=== PATIENT | female | born 1975 | race Caucasian/White ===

== ENCOUNTER 2016-11-07 17:41 | Emergency (ER) | payer MEDICAID ==
--- NOTE | 2016-11-07 18:16 | ER Document Report ---
ED Medical Screen (RME) - General Stated Complaint: FALL/RIGHT KNEE PAIN Notes: Patient is a 41-year-old female fell Thunes night. Complaining of right foot , right knee and right hand pain. Patient has not been able to bear weight. I have greeted and performed a rapid initial assessment of this patient. A comprehensive ED assessment and evaluation of the patient, analysis of test results and completion of the medical decision making process will be conducted by additional ED providers. TRAVEL OUTSIDE OF THE [place] IN LAST 30 DAYS: No - Related Data Allergies/Adverse Reactions: acetaminophen [From Tylenol] Allergy (Verified 11/07/16 18:13) Hives morphine [Morphine] Allergy (Verified 11/07/16 18:13) Hives Past Medical History Pulmonary Medical History: Reports: Hx Asthma - smokers asthma Denies: Hx Tuberculosis Psychiatric Medical History: Reports: Hx Anxiety Past Surgical History: Reports: Hx Section - x2, Hx Gynecologic Surgery - Laparoscopic surgery for endometriosis adhesions; uterine ablation, Hx Hysterectomy - Uterine ablation, Hx Oral Surgery, Hx Tubal Ligation - Immunizations Immunizations up to date: Yes Hx Diphtheria, Pertussis, Tetanus Vaccination: Yes Physical Exam - Vital signs Vitals: Temp Pulse Resp BP Pulse Ox 98.2 F 85 18 122/99 H 96 11/07/16 18:08 11/07/16 18:08 11/07/16 18:08 11/07/16 18:08 11/07/16 18:08 Course - Vital Signs Vital signs: Temp Pulse Resp BP Pulse Ox 98.2 F 85 18 122/99 H 96 11/07/16 18:08 11/07/16 18:08 11/07/16 18:08 11/07/16 18:08 11/07/16 18:08
--- NOTE | 2016-11-07 20:51 | ER Document Report ---
ED Extremity Problem, Lower - General Mode of Arrival: Wheelchair Information source: Patient TRAVEL OUTSIDE OF THE [place] IN LAST 30 DAYS: No - HPI Patient complains to provider of: Injury, Pain, Swelling Location: Knee - right Occurred: Other - see HPI Where: Home, Outdoors Context: Fell Associated symptoms: Painful ambulation <LILLY REID - Last Filed: 11/07/16 21:33> <AP FIGUEROA - Last Filed: 11/07/16 22:08> - General Chief Complaint: Knee Pain Stated Complaint: FALL/RIGHT KNEE PAIN Notes: Patient is a 41-year-old female presenting with department with complaints of right knee pain. Patient states that on Thursday she fell in her driveway on her right knee. Patient states she cleaned her knee with iodine peroxide and has been dressing it appropriately. Patient complains of some swelling and painful ambulation. Patient states the tip of her toes have a numbing and tingling sensation periodically. Patient states she can move her leg and ankle but is not able to completely straighten her leg due to the pain. Patient's PCP is Dr. Reynolds. Patient is allergic to acetaminophen and morphine. (LILLY REID) - Related Data Allergies/Adverse Reactions: acetaminophen [From Tylenol] Allergy (Verified 11/07/16 18:13) Hives morphine [Morphine] Allergy (Verified 11/07/16 18:13) Hives Past Medical History - General Information source: Patient - Social History Smoking Status: Never Smoker Cigarette use (# per day): No Chew tobacco use (# tins/day): No Frequency of alcohol use: None Drug Abuse: None Family History: None Patient has suicidal ideation: No Patient has homicidal ideation: No Pulmonary Medical History: Reports: Hx Asthma - smokers asthma Psychiatric Medical History: Reports: Hx Anxiety Past Surgical History: Reports: Hx Section - x2, Hx Gynecologic Surgery - Laparoscopic surgery for endometriosis adhesions; uterine ablation, Hx Hysterectomy, Hx Oral Surgery, Hx Tubal Ligation - Immunizations Immunizations up to date: Yes Hx Diphtheria, Pertussis, Tetanus Vaccination: Yes <LILLY REID - Last Filed: 11/07/16 21:33> Review of Systems - Review of Systems Constitutional: No symptoms reported EENT: No symptoms reported Cardiovascular: No symptoms reported Respiratory: No symptoms reported Gastrointestinal: No symptoms reported Genitourinary: No symptoms reported Female Genitourinary: No symptoms reported Musculoskeletal: See HPI Skin: See HPI Hematologic/Lymphatic: No symptoms reported Neurological/Psychological: No symptoms reported -: Yes All other systems reviewed and negative <FRANKLINLILLY - Last Filed: 11/07/16 21:33> Physical Exam - Vital signs Interpretation: Normal - General General appearance: Appears well, Alert In distress: Mild - HEENT Head: Normocephalic, Atraumatic Eyes: Normal Pupils: PERRL Mucous membranes: Moist - Respiratory Respiratory status: No respiratory distress Chest status: Nontender Breath sounds: Normal Chest palpation: Normal - Cardiovascular Rhythm: Regular Heart sounds: Normal auscultation Murmur: No - Abdominal Inspection: Normal Distension: No distension Bowel sounds: Normal Tenderness: Nontender Organomegaly: No organomegaly - Back Back: Normal, Nontender - Extremities General upper extremity: Normal inspection, Normal ROM, Normal strength General lower extremity: Other - Right ankle, toes and hip is intact, good sensation and pulses Knee: Tender - Right knee, Other - Right knee effusion, anterior and posterior drawer test is positive, abrasion to right knee - Neurological Neuro grossly intact: Yes Cognition: Normal Orientation: AAOx4 [place] Coma Scale Eye Opening: Spontaneous [place] Coma Scale Verbal: Oriented [place] Coma Scale Motor: Obeys Commands Lei Coma Scale Total: 15 Speech: Normal Sensory: Normal - Psychological Associated symptoms: Normal affect, Normal mood - Skin Skin Temperature: Warm Skin Moisture: Dry Skin irregularity: other - Abrasion to right knee and right palm <DUSTINFELTONLILLY - Last Filed: 11/07/16 21:33> Course <FRANKLINLILLY - Last Filed: 11/07/16 21:33> - Diagnostic Test Radiology reviewed: Reports reviewed <AP FIGUEROA - Last Filed: 11/07/16 22:08> - Re-evaluation Re-evalutation: 11/07/16 Patient with no evidence for fracture and x-ray. Patient has a knee effusion and likely internal ligament injury. Patient does not have any evidence for cellulitis she's been cleaning her abrasions and taking care of him. Patient will be given Damon wrap knee immobilizer crutches and is to follow-up with her primary doctor and likely orthopedics. No other injuries. Understands and agrees with plan. Tetanus is up-to-date. Stable for discharge home. (AP FIGUEROA) - Vital Signs Vital signs: Temp Pulse Resp BP Pulse Ox 98.3 F 77 18 115/77 99 11/07/16 21:40 11/07/16 21:40 11/07/16 21:40 11/07/16 21:40 11/07/16 21:40 (LILLY REID) (AP FIGUEROA) Discharge <LILLY REID - Last Filed: 11/07/16 21:33> <AP FIGUEROA - Last Filed: 11/07/16 22:08> - Discharge Clinical Impression: Right knee sprain Qualifiers: Encounter type: initial encounter Involved ligament of knee: unspecified ligament Qualified Code(s): S83.91XA - Sprain of unspecified site of right knee , initial encounter Abrasion of knee, right Qualifiers: Encounter type: initial encounter Qualified Code(s): S80.211A - Abrasion, right knee, initial encounter Abrasion of palm of right hand Qualifiers: Encounter type: initial encounter Qualified Code(s): S60.511A - Abrasion of right hand, initial encounter Condition: Stable Disposition: HOME, SELF-CARE Instructions: Suspected Internal Knee Injury ([facility]), Knee Immobilizing Splint ( [facility]), Sprained Knee ([facility]), Oral Narcotic Medication ([facility]), Use of Crutches ([facility]) , Ice & Elevation ([facility]) Prescriptions: Ibuprofen/Oxycodone HCl [Oxycodone-Ibuprofen 5-400 Tab] 1 each PO BIDP PRN #20 tablet PRN Reason: Referrals: KALIA REYNOLDS MD [Primary Care Provider] - Follow up as needed Scribe Attestation: 11/07/16 22:08 I personally performed the services described in the documentation, reviewed and edited the documentation which was dictated to the scribe in my presence, and it accurately records my words and actions. (AP FIGUEROA) Scribe Documentation - Scribe Written by Scribe:: Lilly Reid 11/07/16 21:33 acting as scribe for :: Alysia <EDGREN,LILLY - Last Filed: 11/07/16 21:33>
[2016-11-07 22:04] VITALS: BP 115/77
== END 2016-11-07 21:40 | disposition home or self-care (01) ==
LOC: ER 17:41
DX: S83.91XA Sprain of unspecified site of right knee, initial encounter (principal); S60.511A Abrasion of right hand, initial encounter; W17.89XA Other fall from one level to another, initial encounter; Y92.008 Other place in unspecified non-institutional (private) residence as the place of occurrence of the external cause; M25.561 Pain in right knee; M25.461 Effusion, right knee; R20.0 Anesthesia of skin; R20.2 Paresthesia of skin; Z88.6 Allergy status to analgesic agent; Z88.5 Allergy status to narcotic agent; J45.909 Unspecified asthma, uncomplicated
CPT/HCPCS: 99283; 73630; 73130; 73562; L1830

== ENCOUNTER 2017-02-12 06:05 | Emergency (ER) | payer MEDICAID ==
--- NOTE | 2017-02-12 07:02 | ER Document Report ---
ED GI/ - General Mode of Arrival: Ambulatory Information source: Patient TRAVEL OUTSIDE OF THE [place] IN LAST 30 DAYS: No - HPI Patient complains to provider of: Abdominal pain. No: Diarrhea, Vomiting Onset: Other - 2300 last night Location: LUQ, RUQ Associated symptoms: Other - see notes above <CASSANDRA ROWLAND - Last Filed: 02/12/17 06:35> <MACARIO HU - Last Filed: 02/12/17 07:38> - General Chief Complaint: Upper Abdominal Pain Stated Complaint: UPPER ABDOMINAL PAIN Time Seen by Provider: 02/12/17 06:24 Notes: 42 year old female with history of endometriosis and lower abdominal adhesions presents to the ED complaining of bilateral upper quadrant abdominal pain that started last night at 2300. Patient describes the pain as a 'cramping' and that it feels like an 'inner tube.' Patient last ate oysters at 1900 last night. Patient had lab work and a liver ultrasound performed yesterday by Dr. Reynolds, but the patient states she is unsure of what they were looking for. Patient additionally complains of distention, but denies nausea, vomiting, diarrhea, bloody stool, constipation, shortness of breath, or cough. Patient still has her gallbladder and denies any problem with it. Patient denies history of pancreatitis. Patient is currently on Lamictal, Abilify, Alprazolam, Buspirone, and 800 mg Ibuprofen BID. Patient's primary care provider is Dr. Reynolds. (CASSANDRA ROWLAND) - Related Data Allergies/Adverse Reactions: acetaminophen [From Tylenol] Allergy (Verified 11/07/16 18:13) Hives morphine [Morphine] Allergy (Verified 11/07/16 18:13) Hives Past Medical History - General Information source: Patient - Social History Smoking Status: Current Every Day Smoker Frequency of alcohol use: Rare Family History: None Patient has suicidal ideation: No Patient has homicidal ideation: No Pulmonary Medical History: Reports: Hx Asthma - smokers asthma Psychiatric Medical History: Reports: Hx Anxiety Past Surgical History: Reports: Hx Section - x2, Hx Gynecologic Surgery - Laparoscopic surgery for endometriosis adhesions; uterine ablation, Hx Hysterectomy, Hx Oral Surgery, Hx Tubal Ligation - Immunizations Immunizations up to date: Yes Hx Diphtheria, Pertussis, Tetanus Vaccination: Yes <CASSANDRA ROWLAND - Last Filed: 02/12/17 06:35> Review of Systems - Review of Systems Constitutional: No symptoms reported EENT: No symptoms reported Cardiovascular: No symptoms reported Respiratory: No symptoms reported. denies: Cough, Short of breath Gastrointestinal: See HPI, Abdomen distended, Abdominal pain - bilateral upper quadrant. denies: Diarrhea, Nausea, Vomiting, Constipation Genitourinary: No symptoms reported Female Genitourinary: No symptoms reported Musculoskeletal: No symptoms reported Skin: No symptoms reported Hematologic/Lymphatic: No symptoms reported Neurological/Psychological: No symptoms reported -: Yes All other systems reviewed and negative <CASSANDRA ROWLAND - Last Filed: 02/12/17 06:35> Course <CASSANDRA ROWLAND - Last Filed: 02/12/17 06:35> - Laboratory Result Diagrams: 02/12/17 06:54 02/12/17 06:54 <MACARIO HU - Last Filed: 02/12/17 07:38> - Re-evaluation Re-evalutation: 02/12/17 07:37 Patient presents to the emergency department with chief complaint of upper abdominal fullness and distention. She has a history of chronic abdominal problems with endometriosis and adhesions she is not describing pain she feels like she is bloated. started last night around 11:00 no right upper quadrant pain she has had mildly elevated liver enzymes further doing some outpatient workup for that. No fevers chills cough chest pain shortness of breath. No nausea vomiting abdominal pain diarrhea constipation urinary symptoms or blood in the stool. On examination she is well-appearing nontoxic in no acute distress with no acute abdominal tenderness guarding rebound rigidity good bowel sounds no acute abdominal findings. Laboratory evaluation no white count elevation elevated lipase mildly elevated liver enzymes acute abdominal series negative for obstruction. At this point patient will be discharged to home primary care provider in 1-2 days and discussed reasons for ED return to (MACARIO HU) - Vital Signs Vital signs: Temp Pulse Resp BP Pulse Ox 97.7 F 99 20 127/99 H 97 02/12/17 06:12 02/12/17 06:12 02/12/17 06:12 02/12/17 06:12 02/12/17 06:12 - Laboratory Laboratory results interpreted by me: 02/12/17 02/12/17 06:54 06:54 Eosinophils % 6.2 H AST 124 H ALT 165 H Discharge <CASSANDRA ROWLAND - Last Filed: 02/12/17 06:35> <MACARIO HU - Last Filed: 02/12/17 07:38> - Discharge Clinical Impression: Abdominal distension Condition: Stable Disposition: HOME, SELF-CARE Additional Instructions: Abdominal fullness distension There are many causes of abdominal pain. Pain can mean a serious problem requiring surgery (such as appendicitis). It can also be an innocent problem that goes away on its own (such as a viral infection). Often, time must pass to determine the cause of pain. The physician does not feel that hospitalization is necessary, at present. Things may change within the next 24 hours. Call the doctor or come back for re- examination if any problems occur, such as: (1) Pain that becomes more severe, steady, or becomes concentrated in one specific area. Also, pain that is more severe with movement or coughing. (2) Vomiting that persists or becomes more frequent. (3) Blood in the vomitus, urine, or bowel movements. Blood in the stool may have a tarry or black appearance. (4) Shaking chills or fever greater than 100 degrees F. (5) The abdomen becomes more distended or swollen. (6) Bowel movements cease. (7) Failure to improve as expected. Referrals: KALIA REYNOLDS MD [Primary Care Provider] - (Follow-up with your primary care physician in 1-2 days return for increasing worsening or new symptoms) Scribe Attestation: 02/12/17 07:36 I personally performed the services described in the documentation reviewed the documentation recorded by my scribe in my presence and it accurately and completely records my words and actions (MACARIO HU) Scribe Documentation - Scribe Written by Dhruv:: Dhruv Corrigan, 02/12/2017 [id number] acting as scribe for :: Raoul <CASSANDRA ROWLAND - Last Filed: 02/12/17 06:35>
[2017-02-12 07:05] LABS: ABSOLUTE BASOPHILS # (AUTO) 0.1 10^3/uL (0.0-0.2); ABSOLUTE EOSINOPHILS # (AUTO) 0.4 10^3/uL (0.0-0.6); ABSOLUTE LYMPHOCYTES (AUTO) 2.1 10^3/uL (0.5-4.7); ABSOLUTE MONOCYTES (AUTO) 0.6 10^3/uL (0.1-1.4); ABSOLUTE NEUT (AUTO) 3.6 10^3/uL (1.7-8.2); BASOPHILS % (AUTO) 0.9 % (0-2); EOSINOPHILS % (AUTO) 6.2 % (0-6); HEMATOCRIT 42.3 % (36.0-47.0); HEMOGLOBIN 14.6 g/dL (12.0-15.5); HGB HCT DIFFERENCE 1.5; LYMPHOCYTES % (AUTO) 30.7 % (13-45); MEAN CORPUSCULAR HEMOGLOBIN 32.1 pg (27.0-33.4); MEAN CORPUSCULAR HGB CONC 34.6 g/dL (32.0-36.0); MEAN CORPUSCULAR VOLUME 93 fl (80-97); MONOCYTES % (AUTO) 9.4 % (3-13); RED BLOOD COUNT 4.55 10^6/uL (3.72-5.28); RED CELL DISTRIBUTION WIDTH 13.1 % (11.5-14.0); SEGMENTED NEUTROPHILS % (AUTO) 52.8 % (42-78); WHITE BLOOD COUNT 6.8 10^3/uL (4.0-10.5)
[2017-02-12 07:17] LABS: ALANINE AMINOTRANSFERASE 165 U/L (9-52); ALBUMIN 3.7 g/dL (3.5-5.0); ALKALINE PHOSPHATASE 58 U/L (38-126); ANION GAP 11 (5-19); ASPARTATE AMINO TRANSFERASE 124 U/L (14-36); BILIRUBIN,DIRECT 0.2 mg/dL (0.0-0.4); BILIRUBIN,TOTAL 0.5 mg/dL (0.2-1.3); BLOOD UREA NITROGEN 12 mg/dL (7-20); CALCIUM 9.1 mg/dL (8.4-10.2); CARBON DIOXIDE 23 mmol/L (22-30); CHLORIDE 107 mmol/L (98-107); CREATININE RESULT 0.63 mg/dL (0.52-1.25); GLUCOSE 93 mg/dL (75-110); LIPASE 75.1 U/L (23-300); SODIUM 140.8 mmol/L (137-145); TOTAL PROTEIN 6.3 g/dL (6.3-8.2)
[2017-02-12 07:48] VITALS: BP 119/80
== END 2017-02-12 07:49 | disposition home or self-care (01) ==
LOC: ER 06:05
DX: R14.0 Abdominal distension (gaseous) (principal); R10.12 Left upper quadrant pain; R10.11 Right upper quadrant pain; R74.8 Abnormal levels of other serum enzymes; F41.9 Anxiety disorder, unspecified; J45.909 Unspecified asthma, uncomplicated; F17.200 Nicotine dependence, unspecified, uncomplicated; Z79.899 Other long term (current) drug therapy; Z79.1 Long term (current) use of non-steroidal anti-inflammatories (NSAID); Z90.710 Acquired absence of both cervix and uterus; Z87.42 Personal history of other diseases of the female genital tract; Z98.890 Other specified postprocedural states
CPT/HCPCS: 36415; 74022; 80053; 83690; 85025; 99284

== ENCOUNTER 2017-07-08 | Emergency (ER) | payer MEDICAID ==
[2017-07-08 00:35] VITALS: BP 132/90
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
== END 2017-07-08 00:41 | disposition left against medical advice (07) ==
LOC: ER
DX: S80.02XA Contusion of left knee, initial encounter (principal); S80.212A Abrasion, left knee, initial encounter; F10.10 Alcohol abuse, uncomplicated; M25.562 Pain in left knee; F17.200 Nicotine dependence, unspecified, uncomplicated; Y08.89XA Assault by other specified means, initial encounter
CPT/HCPCS: 99284; L0120

== ENCOUNTER → 2017-12-02 | Outpatient (CLI) | payer MEDICAID ==
--- NOTE | 2017-12-02 15:50 | WOMENS IMAGING REPORT ---
EXAM DESCRIPTION: BILAT SCREENING MAMMO W/CAD COMPLETED DATE/TIME: 12/02/2017 1:20 pm REASON FOR STUDY: SCREENING MAMMO Z12.31 ENCNTR SCREEN MAMMOGRAM FOR MALIGNANT NEOPLASM OF [place]A COMPARISON: None. TECHNIQUE: Standard craniocaudal and mediolateral oblique views of each breast recorded using [employer] acquisition. LIMITATIONS: None. FINDINGS: RIGHT BREAST MASSES: Circumscribed mass in the upper-outer quadrant, located 14 to 15 cm from the nipple. Most li charity a lymph node. CALCIFICATIONS: No new or suspicious calcifications. ARCHITECTURAL DISTORTION: None. DEVELOPING DENSITY: None. ASYMMETRY: None noted. OTHER: No other significant findings. LEFT BREAST MASSES: No suspicious masses. CALCIFICATIONS: No new or suspicious calcifications. ARCHITECTURAL DISTORTION: None. DEVELOPING DENSITY: None. ASYMMETRY: None noted. OTHER: No other significant findings. Read with the assistance of CAD. .[facility] - R2 Cenova Version 1.3 .[facility] Imaging - R2 Cenova Version 1.3 .[facility] Imaging - R2 Cenova Version 2.4 .[facility] R2 Cenova Version 2.4 .[facility] - R2 [employer] Version 9.2 IMPRESSION: Circumscribed mass in the upper-outer quadrant right breast, most likely a lymph node. Recommend ultrasound for confirmation. No worrisome findings in the left breast. BREAST DENSITY: a. The breasts are almost entirely fatty. BIRAD: 0 Incomplete: Needs Additional Imaging Evaluation and/or prior Mammograms for Comparison. RECOMMENDATION: RECOMMENDED FOLLOW-UP: Recommend additional evaluation with ultrasound of the right breast. Recommend routine screening mammography of the left breast. The patient will be contacted for additional imaging. COMMENT: The patient has been notified of the results by letter per SA requirements. Additional no tification policies are in place for contacting patient with suspicious or incomplete findings. Quality ID #[id number]: The [employer] recommends an annual screening mammogram for women aged 40 years or over. This facility utilizes a reminder system to ensure that all patients receive reminder letters, and/or direct phone calls for appointments. This includes reminders for routine scr eening mammograms, diagnostic mammograms, or other Breast Imaging Interventions when appropriate. Th is patient will be placed in the appropriate reminder system. The [employer] (ACR) has developed recommendations for screening MRI of the breast s in certain patient populations, to be used in conjunction with mammography. Breast MRI surveillanc e may be appropriate for women with more than 20% lifetime risk of developing breast cancer as deter mined by genetic testing, significant family history of the disease, or history of mantle radiation f or Hodgkins Disease. ACR Practice Guidelines 2008. TECHNICAL DOCUMENTATION: FINDING NUMBER: (1) ASSESSMENT: (1) JOB ID: [id number] [employer]- All Rights Reserved Reading location - IP/workstation name: [facility]
== END ==
LOC: WI 13:00
PROVIDERS: ATTEND Internal Medicine
DX: Z12.31 Encounter for screening mammogram for malignant neoplasm of breast (principal); N63.13 Unspecified lump in the right breast, lower outer quadrant
CPT/HCPCS: 77067

== ENCOUNTER → 2017-12-14 | Outpatient (CLI) | payer MEDICAID ==
--- NOTE | 2017-12-15 08:15 | WOMENS IMAGING REPORT ---
EXAM DESCRIPTION: U/S BREAST UNILATERAL, COMPL COMPLETED DATE/TIME: 12/14/2017 10:29 am REASON FOR STUDY: UNSPECIFIED LUMP;N63.11 N63.11 UNSPECIFIED LUMP IN THE RIGHT BREAST, UPPER OUTER HUE COMPARISON: Bilateral mammography 12/02/2017 TECHNIQUE: Real-time and static grayscale imaging performed of the right breast targeted to the area of mammographic concern. Selected color Doppler images recorded. LIMITATIONS: None. FINDINGS: Nodule described in the far upper outer quadrant right breast is a benign intramammary lym ph node, 1.3 x 0.8 mm in size. There is preserved central hilar fat, normal lymph node cortical thic kness. IMPRESSION: Benign appearing right breast axillary tail lymph node BIRAD: 2 Benign findings. RECOMMENDATION: RECOMMENDED FOLLOW-UP: Please continue yearly bilateral screening in November 2018. Co nsider bilateral screening tomosynthesis COMMENT: The [employer] (ACR) has developed recommendations for screening MRI of the breasts in certain patient populations, to be used in conjunction with mammography. Breast MRI s urveillance may be appropriate for women with more than 20% lifetime risk of developing breast cancer as determined by genetic testing, significant family history of the disease, or history of mantle r adiation for Hodgkins Disease. ACR Practice Guidelines 2007. TECHNICAL DOCUMENTATION: JOB ID: [id number] [employer]- All Rights Reserved Reading location - IP/workstation name: [email or web address]
== END ==
LOC: WI 10:24
PROVIDERS: ATTEND Internal Medicine
DX: N63.11 Unspecified lump in the right breast, upper outer quadrant (principal)
CPT/HCPCS: 76641

== ENCOUNTER 2018-06-17 22:07 | Emergency (ER) | payer MEDICAID ==
[2018-06-17 22:53] VITALS: BP 129/81
[2018-06-17] MEDS ORDERED: KETOROLAC TROMETHAMINE 60 MG/2 ML SDV IM ONE (23:59)
--- NOTE | 2018-06-18 00:04 | RADIOLOGY REPORT (SQ) ---
CLINICAL DATA: 43-year-old female with right elbow pain TECHNICAL DATA: Four x-ray views of the right elbow were performed on 06/17/2018 at 11:54 PM. COMPARISONS: None FINDINGS: There is no evidence of acute fracture or dislocation. There is mild hypertrophic spurring of the distal anterior humerus and coronoid process of the proximal ulna best appreciated on the lateral projection. These are less likely felt to represent fractures. There is no elevation of the anterior humeral fat pad or joint effusion. Bone mineralization is normal No focal soft tissue abnormalities are identified. IMPRESSION: No evidence of acute osseous injury involving the right elbow.
--- NOTE | 2018-06-18 00:06 | RADIOLOGY REPORT (SQ) ---
CLINICAL DATA: 43-year-old female with right wrist pain TECHNICAL DATA: Three x-ray views of the right wrist were performed on 06/17/2018 at 11:49 PM. COMPARISONS: None FINDINGS: There is no evidence of fracture or dislocation. There is no significant arthritis or degenerative change. No focal lytic or sclerotic bone lesions are seen. Bone mineralization is normal No focal soft tissue abnormalities are identified. IMPRESSION: No evidence of acute osseous injury involving the right wrist.
--- NOTE | 2018-06-18 00:09 | RADIOLOGY REPORT (SQ) ---
CLINICAL DATA: 43-year-old female with right shoulder pain. TECHNICAL DATA: Three x-ray views of the right shoulder were performed on 06/17/2018 at 11:44 PM. COMPARISONS: None FINDINGS: There is no evidence of fracture or dislocation. There is motion artifact on the Y view. This results in slight degradation of image quality. There are mild degenerative changes of the acromioclavicular joint. Subchondral cystic changes are noted within the distal clavicle and acromion process. There are also subchondral cystic changes in the right humeral head. Bone mineralization is normal No focal soft tissue abnormalities are identified. IMPRESSION: No evidence of acute osseous injury involving the right shoulder. There are mild degenerative changes.
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
== END 2018-06-18 01:48 | disposition home or self-care (01) ==
LOC: ER 22:07
DX: S40.021A Contusion of right upper arm, initial encounter (principal); S20.211A Contusion of right front wall of thorax, initial encounter; S50.01XA Contusion of right elbow, initial encounter; S60.211A Contusion of right wrist, initial encounter; M79.601 Pain in right arm; Y08.02XA Assault by strike by baseball bat, initial encounter; F17.200 Nicotine dependence, unspecified, uncomplicated; J45.909 Unspecified asthma, uncomplicated
CPT/HCPCS: 99284; 96372; 73080; 73030; 73110; J1885

== ENCOUNTER 2018-12-07 13:20 | Emergency (ER) | payer MEDICAID ==
--- NOTE | 2018-12-07 14:27 | ER Document Report ---
HPI - HPI Time Seen by Provider: 12/07/18 14:27 Pain Level: 4 - CONSTITUTIONAL Notes: 43-year-old female presents to the ED with complaints of right ankle pain after she slipped in the shower yesterday. Denies falling, no neuro changes or head trauma. Has not tried anything [id number], is not tried any icing or heat. Able to bear full weight. Reports she does have crutches at home. Pain is a 5 out of 10, throbbing achy. Denies fevers, chills, chest pain,palpitations, shortness of breath, dyspnea, nausea, vomiting, diarrhea, abdominal pain, hematuria,blurred vision, double vision, loss of vision, speech changes, LH, dizziness, syncope, headaches, wheezing, ST, URI, neck pain, weakness, bowel or bladder dysfunction, saddle anesthesia, numbness or tingling in bilateral upper or lower extremities equally, muscle paralysis, weakness in bilateral upper or lower extremities equally or rash. - REPRODUCTIVE Reproductive: DENIES: : Past Medical History - General Information source: Patient - Social History Smoking Status: Unknown if Ever Smoked Family History: None Pulmonary Medical History: Reports: Hx Asthma - smokers asthma Denies: Hx Tuberculosis Renal/ Medical History: Denies: Hx Peritoneal Dialysis Psychiatric Medical History: Reports: Hx Anxiety Past Surgical History: Reports: Hx Section - x2, Hx Gynecologic Surgery - Laparoscopic surgery for endometriosis adhesions; uterine ablation, Hx Hysterectomy, Hx Oral Surgery, Hx Tubal Ligation - Immunizations Immunizations up to date: Yes Hx Diphtheria, Pertussis, Tetanus Vaccination: Yes Vertical Provider Document - CONSTITUTIONAL Agree With Documented VS: Yes Notes: PHYSICAL EXAMINATION: GENERAL: Well-appearing, well-nourished and in no acute distress. HEAD: Atraumatic, normocephalic. EYES: Pupils equal round and reactive to light, extraocular movements intact, conjunctiva are normal. ENT: Nares patent, oropharynx clear without exudates. Moist mucous membranes. NECK: Normal range of motion, supple without lymphadenopathy LUNGS: Breath sounds clear to auscultation bilaterally and equal. No wheezes rales or rhonchi. HEART: Regular rate and rhythm without murmurs ABDOMEN: Soft, nontender, nondistended abdomen. No guarding, no rebound. No masses appreciated. Female : deferred Musculoskeletal: Normal range of motion, no pitting or edema. No cyanosis. right ankle with swelling, tenderness on anterior aspect of ankle. pain with inversion. squeeze test negative. dtr +2 BLE. Limited APROM. distal pulses + 2 BLE equally. Full motor and sensory function of bilateral lower extremities. No noted open wounds or abrasion. Normal gait. Negative Homans sign no vascular compromise. Peroneal nerve is intact with strong eversion and plantar flexion. Negative anterior drawer test. NEUROLOGICAL: Cranial nerves grossly intact. Normal speech, normal gait. Normal sensory, motor exams PSYCH: Normal mood, normal affect. SKIN: Warm, Dry, normal turgor, no rashes or lesions noted. 22-like and then on the other half of a flight - INFECTION CONTROL TRAVEL OUTSIDE OF THE [place] IN LAST 30 DAYS: No Course - Re-evaluation Re-evalutation: 12/07/18 15:57 Afebrile slightly hypertensive but this is normal for patient, and no distress, x-ray negative for any acute fracture dislocation, tenderness and anterior aspect of ankle, discussed the patient alternate between heat and ice for the first day then switch to heat the second day patient does have crutches at home that she will use. Will have patient placed in Aircast, advised to follow elevation, compression and heat therapy. Follow-up with promotion specialist as needed. After performing a Medical Screening Examination, I estimate there is LOW risk for OPEN FRACTURE, COMPARTMENT SYNDROME, DEEP VENOUS THROMBOSIS, ACUTE TENDON RUPTURE, or NEUROVASCULAR INJURY thus I consider the discharge disposition reasonable. I have reevaluated this patient multiple times and no significant life threatening changes are noted. The patient and I have discussed the diagnosis and risks, and we agree with discharging home to closely follow-up with their primary doctor or the referral orthopedist with the understanding that symptoms and presentations can change. We also discussed returning to the Emergency Department immediately if new or worsening symptoms occur. We have discussed the symptoms which are most concerning (e.g., changing or worsening pain, numbness, weakness) that necessitate immediate return - Vital Signs Vital signs: Temp Pulse Resp BP Pulse Ox 98.3 F 72 20 151/85 H 98 12/07/18 13:44 12/07/18 13:44 12/07/18 13:44 12/07/18 13:44 12/07/18 13:44 Discharge - Discharge Clinical Impression: Right ankle sprain Condition: Stable Disposition: HOME, SELF-CARE Instructions: Sprained Ankle ([facility]), Splint Precautions ([facility]), Soft Ankle Splint ([facility]), Ice & Elevation ([facility]), Ankle Stirrup Splint ([facility]) Additional Instructions: Return immediately for any new or worsening symptoms. Follow up with primary care provider, call tomorrow to make followup appointment. Forms: Return to Work Referrals: KALIA REYNOLDS MD [Primary Care Provider] - Follow up as needed FRANCISCO RIVERA MD [ACTIVE STAFF] - Follow up in 3-5 days
--- NOTE | 2018-12-07 15:23 | RADIOLOGY REPORT (SQ) ---
EXAM DESCRIPTION: ANKLE RIGHT COMPLETE COMPLETED DATE/TIME: 12/07/2018 3:05 pm REASON FOR STUDY: fell last night, right ankle pain COMPARISON: None. NUMBER OF VIEWS: Three views. TECHNIQUE: AP, lateral, and oblique radiographic images acquired of the right ankle. LIMITATIONS: None. FINDINGS: MINERALIZATION: Normal. BONES: No acute fracture or dislocation. Very small plantar calcaneal spur. JOINTS: No effusions. SOFT TISSUES: No soft tissue swelling. No foreign body. OTHER: No other significant finding. IMPRESSION: 1. NEGATIVE STUDY OF THE RIGHT ANKLE. TECHNICAL DOCUMENTATION: JOB ID: [id number] [employer]- All Rights Reserved Reading location - IP/workstation name: [email or web address]
[2018-12-07 16:26] VITALS: BP 118/79
== END 2018-12-07 16:26 | disposition home or self-care (01) ==
LOC: ER 13:20
DX: S93.401A Sprain of unspecified ligament of right ankle, initial encounter (principal); M25.571 Pain in right ankle and joints of right foot; W18.2XXA Fall in (into) shower or empty bathtub, initial encounter; J45.909 Unspecified asthma, uncomplicated
CPT/HCPCS: 99283; 73610; L1902

== ENCOUNTER → 2019-04-21 | Outpatient (CLI) | payer MEDICAID ==
--- NOTE | 2019-04-21 10:01 | WOMENS IMAGING REPORT ---
EXAM DESCRIPTION: BILAT SCREENING MAMMO W/CAD COMPLETED DATE/TIME: 04/21/2019 9:23 am REASON FOR STUDY: Z12.31 ENCOUNTER FOR SCREENING MAMMOGRAM FOR MALIGNANT NEOPLASM OF BREAST Z12.31 ENCNTR SCREEN MAMMOGRAM FOR MALIGNANT NEOPLASM OF [place]EDA COMPARISON: 12/02/2017. EXAM PARAMETERS: Standard craniocaudal and mediolateral oblique views of each breast recorded using digital acquisition. Read with the assistance of CAD. .[facility] [employer] Receiver Version 9.2 LIMITATIONS: None. FINDINGS: Findings present which are benign by mammographic criteria. No suspicious masses, calcifi cations or architectural distortion. Pertinent benign findings: Stable lymph node in the upper-outer right breast. Benign mammographic findings may include one or more of the following: Smooth masses, popcorn/rim/co arse calcifications, asymmetries, post-procedure changes, and lesions with long-standing stability. IMPRESSION: BENIGN MAMMOGRAPHIC FINDINGS. BIRADS 2 BREAST DENSITY: a. The breasts are almost entirely fatty. BIRAD: ASSESSMENT: 2 BENIGN FINDING(S) RECOMMENDATION: ROUTINE SCREENING COMMENT: The patient has been notified of the results by letter per SA requirements. Additional no tification policies are in place for contacting patient with suspicious or incomplete findings. Quality ID #[id number]: The [employer] recommends an annual screening mammogram for women aged 40 years or over. This facility utilizes a reminder system to ensure that all patients receive reminder letters, and/or direct phone calls for appointments. This includes reminders for routine scr eening mammograms, diagnostic mammograms, or other Breast Imaging Interventions when appropriate. Th is patient will be placed in the appropriate reminder system. TECHNICAL DOCUMENTATION: FINDING NUMBER: (1) ASSESSMENT: (1) JOB ID: [id number] [employer]- All Rights Reserved Reading location - IP/workstation name: [email or web address]
== END ==
LOC: WI 08:57
PROVIDERS: ATTEND Internal Medicine
DX: Z12.31 Encounter for screening mammogram for malignant neoplasm of breast (principal)
CPT/HCPCS: 77067

== ENCOUNTER 2020-03-05 21:42 | Observation (INO) | payer MEDICAID ==
[2020-03-05 22:38] LABS: ABSOLUTE BASOPHILS # (AUTO) 0.1 10^3/uL (0.0-0.2); ABSOLUTE EOSINOPHILS # (AUTO) 0.5 10^3/uL (0.0-0.6); ABSOLUTE LYMPHOCYTES (AUTO) 2.8 10^3/uL (0.5-4.7); ABSOLUTE MONOCYTES (AUTO) 0.5 10^3/uL (0.1-1.4); ABSOLUTE NEUT (AUTO) 5.2 10^3/uL (1.7-8.2); BASOPHILS % (AUTO) 1.4 % (0-2); EOSINOPHILS % (AUTO) 5.2 % (0-6); HEMATOCRIT 47.6 % (36.0-47.0); HEMOGLOBIN 16.5 g/dL (12.0-15.5); LYMPHOCYTES % (AUTO) 30.3 % (13-45); MEAN CORPUSCULAR HEMOGLOBIN 31.7 pg (27.0-33.4); MEAN CORPUSCULAR HGB CONC 34.6 g/dL (32.0-36.0); MEAN CORPUSCULAR VOLUME 92 fl (80-97); MONOCYTES % (AUTO) 5.7 % (3-13); PLATELET COUNT 311 10^3/uL (150-450); RED CELL DISTRIBUTION WIDTH 13.7 % (11.5-14.0); SEGMENTED NEUTROPHILS % (AUTO) 57.4 % (42-78); TOTAL CELLS COUNTED % (AUTO) 100 %; WHITE BLOOD COUNT 9.1 10^3/uL (4.0-10.5)
--- NOTE | 2020-03-05 22:39 | ER Document Report ---
ED General - General Chief Complaint: Chest Pain Stated Complaint: CHEST PAIN TRAVEL OUTSIDE OF THE [place] IN LAST 30 DAYS: No - HPI Notes: 45-year-old female history of COPD, hypertension, obesity, HCV presents with sudden onset of severe left-sided pressure-like chest pain without radiation that began at rest while watching TV and lasted for approximately 5 hours with improvement after being given nitroglycerin, aspirin, Ativan by EMS. Patient endorses having a scantly productive cough for past week and a half associated with shortness of breath. Patient also endorses feeling chest pressure when she goes up a flight of stairs for unknown duration. Patient denies any fever, cardiac history, prior cardiac work-up, diabetes, hyperlipidemia, drug use, lower extremity edema, recent travel/trauma/surgery, exogenous estrogen tx, personal hypercoagulability history but says father of "blood clot" at age 31 (patient without any hyper coag work-up prior). - Related Data Allergies/Adverse Reactions: acetaminophen [From Tylenol] Allergy (Verified 03/05/20 21:54) Hives morphine [Morphine] Allergy (Verified 03/05/20 21:54) Hives Past Medical History - General Information source: Patient - Social History Smoking Status: Current Every Day Smoker Frequency of alcohol use: Social Drug Abuse: None Family History: None Patient has homicidal ideation: No Pulmonary Medical History: Reports: Hx Asthma - smokers asthma Denies: Hx Tuberculosis Renal/ Medical History: Denies: Hx Peritoneal Dialysis Psychiatric Medical History: Reports: Hx Anxiety Past Surgical History: Reports: Hx Section - x2, Hx Gynecologic Surgery - Laparoscopic surgery for endometriosis adhesions; uterine ablation, Hx Hysterectomy, Hx Oral Surgery, Hx Tubal Ligation - Immunizations Immunizations up to date: Yes Hx Diphtheria, Pertussis, Tetanus Vaccination: Yes Review of Systems - Review of Systems Notes: REVIEW OF SYSTEMS: CONSTITUTIONAL : Denies fever, chills, or sweats. EENT: Denies recent cold/sinus symptoms, denies throat pain CARDIOVASCULAR: +chest pain, -ROSALIE RESPIRATORY: +cough, +shortness of breath. GASTROINTESTINAL: Denies abdominal pain, nausea/vomiting. GENITOURINARY: Denies difficulty urinating, painful urination. FEMALE GENITOURINARY: Denies abnormal vaginal bleeding, vaginal discharge. MUSCULOSKELETAL: Denies neck pain, back pain. SKIN: Denies rash +skin lesions. HEMATOLOGIC : Denies easy bruising or bleeding. LYMPHATIC: Denies swollen, enlarged glands. NEUROLOGICAL: Denies headache, denies change in gait. PSYCHIATRIC: Denies anxiety or stress or depression. Physical Exam - Vital signs Vitals: Pulse Ox 96 03/05/20 21:49 - Notes Notes: PHYSICAL EXAMINATION: GENERAL: Well-appearing, well-nourished, obese middle-aged female sitting up in stretcher and in no acute distress. HEAD: Atraumatic, normocephalic. EYES: Pupils equal round and appropriate constriction, sclera anicteric, conjunctiva are normal. ENT: nares patent, moist mucous membranes. NECK: Normal range of motion, supple without lymphadenopathy LUNGS: Normal respiratory rate and effort, good air movement with scattered expiratory wheezing and prolonged expiratory phase HEART: Mildly tachycardic rate with regular rhythm without murmurs ABDOMEN: Soft, nontender, no guarding, no masses, no CVAT EXTREMITIES: Normal range of motion, no pitting or edema. No cyanosis. NEUROLOGICAL: Awake, alert, conversing appropriately, moves all extremities spontaneously. PSYCH: Normal mood, normal affect. SKIN: Warm, Dry, normal turgor, mild erythema without edema or discharge around puncture site on left AC patient says from blood draw few days ago Course - Re-evaluation Re-evalutation: 03/05/20 22:39 History concerning for unstable angina, exam with mild wheezing but no respiratory distress, unlikely that current symptoms resulted from COPD exacerbation, but will treat for mild COPD. Rule out pneumonia, PE, COVID-19. Monitor, EKG, troponin, dimer, chest x-ray, nebs, steroids, fluid test, if no emergent findings admit for observation and cardiac stress test/cardiology eval 03/06/20 00:09 No emergent findings on initial work-up, dimer negative and patient well score 1.5. Given patient's risk factors of obesity, hypertension, and smoking, and concerning story admitted patient to observation for cardiac eval. Discussed case with Dr. Escalera who accepts patient to telemetry observation unit. - Vital Signs Vital signs: Temp Pulse Resp BP Pulse Ox 98.9 F 96 03/05/20 21:52 03/05/20 21:49 - Laboratory Result Diagrams: 03/05/20 22:24 03/05/20 22:24 Laboratory results interpreted by me: 03/05/20 03/05/20 22:24 22:24 Hgb 16.5 H Hct 47.6 H Chloride 109 H BUN 5 L Glucose 116 H AST 154 H ALT 225 H - EKG Interpretation by Me Additional EKG results interpreted by me: 03/06/20 00:25 Heart rate 110, sinus tachycardia, no significant ST elevations or depressions, no significant T wave abnormalities, QTc 428 Discharge - Discharge Clinical Impression: Chest pain Condition: Stable Disposition: ADMITTED OBSERVATION Admitting Provider: Jw (Hospitalist) Unit Admitted: Telemetry
[2020-03-05] MEDS ORDERED: IPRATROPIUM/ALBUTEROL 0.5-2.5 MG/3 ML AMPUL NEB ONE (22:41)
[2020-03-05] MEDS ORDERED: PREDNISONE 20 MG TABLET PO ONE (22:41)
[2020-03-05 22:46] LABS: INTERNATIONAL RATION (INR) 0.97; PROTHROMBIN TIME 12.9 SEC (11.4-15.4)
[2020-03-05 23:09] LABS: ALBUMIN 4.2 g/dL (3.5-5.0); ALKALINE PHOSPHATASE 79 U/L (38-126); ASPARTATE AMINO TRANSFERASE 154 U/L (14-36); BILIRUBIN,TOTAL 0.3 mg/dL (0.2-1.3); BLOOD UREA NITROGEN 5 mg/dL (7-20); CALCIUM 9.3 mg/dL (8.4-10.2); CARBON DIOXIDE 24 mmol/L (22-30); CREATINE KINASE 67 U/L (30-135); GLUCOSE 116 mg/dL (75-110); TOTAL PROTEIN 7.9 g/dL (6.3-8.2)
[2020-03-05 23:10] LABS: ANION GAP 8 (5-19); CHLORIDE 109 mmol/L (98-107)
[2020-03-05 23:21] LABS: CREATINE KINASE MB 0.48 ng/mL (<4.55)
[2020-03-05 23:22] LABS: TROPONIN I < 0.012 ng/mL
--- NOTE | 2020-03-05 23:34 | RADIOLOGY REPORT (SQ) ---
EXAM DESCRIPTION: XR CHEST 1 VIEW COMPLETED DATE/TME: 03/05/2020 00:00 CLINICAL HISTORY: 45 years, Female, CHEST PAIN COMPARISON: 10-16 chest NUMBER OF VIEWS: 1 TECHNIQUE: Portable chest LIMITATIONS: None. FINDINGS: Heart size is normal. Calcified granuloma right lung base. Lungs are otherwise clear. No pneumothorax IMPRESSION: No acute cardiopulmonary process copyright 2010 [employer]- All Rights Reserved
[2020-03-06] MEDS ORDERED: ACETAMINOPHEN 325 MG TABLET PO PRN (00:10)
[2020-03-06] MEDS ORDERED: NITROGLYCERIN 0.4 MG/TAB 25 TAB/BOTTLE SL PRN (00:10)
[2020-03-06] MEDS ORDERED: ATORVASTATIN CALCIUM 80 MG TABLET PO ONE (00:45)
--- NOTE | 2020-03-06 05:09 | PDOC H&P ---
History of Present Illness Admission Date/PCP: 03/06/20 00:18 KALIA REYNOLDS Patient complains of: Chest pain History of Present Illness: CHINMAY MIRANDA is a 45 year old female with a past medical history of morbid obesity, endometriosis, hepatitis C and tobacco abuse. She presents 5 hours after the onset of severe left-sided chest pain without radiation occurring at rest while watching television. It was aggravated by activity but relieved by nitroglycerin, aspirin and Ativan received via EMS. She denies shortness of breath nausea vomiting diaphoresis or palpitations. She denies previous episode, change in recent medication regiment and is otherwise felt well. She denies recent cardiac stress test. Past Medical History Pulmonary Medical History: Reports: Asthma - smokers asthma Denies: Tuberculosis Endocrine Medical History: Reports: Obesity GI Medical History: Reports: Hepatitis Psychiatric Medical History: Denies: Depression Past Surgical History Past Surgical History: Reports: Section - x2, Hysterectomy, Tubal Ligation Social History Information Source: Patient, [facility] Records Smoking Status: Current Some Day Smoker Frequency of Alcohol Use: Social Hx Recreational Drug Use: No Drugs: None Hx Prescription Drug Abuse: No - Advance Directive Resuscitation Status: Full Code Family History Family History: Other - Hypercoagulability Parental Family History Reviewed: Yes Children Family History Reviewed: Yes Sibling(s) Family History Reviewed.: Yes Medication/Allergy Home Medications: Methylprednisolone [Medrol 4 mg Dosepack 21 Tab/Pack] 4 mg PO ASDIR PRN #21 tab.ds.pk 12/25/15 Oxycodone HCl 5 mg PO Q6HP PRN #25 tablet 12/25/15 Penicillin V Potassium [Penicillin Vk 500 mg Tablet] 500 mg PO QID #40 tablet 03/26/16 Tramadol HCl [Ultram] 50 mg PO Q4HP PRN #15 tablet 03/26/16 Penicillin V Potassium [Penicillin Vk 500 mg Tablet] 500 mg PO BID #20 tablet 06/13/16 Tramadol HCl [Ultram] 50 mg PO QID #15 tablet 06/13/16 Prednisone [Deltasone 10 mg Tablet] 10 mg PO ASDIR PRN #21 tablet 06/29/16 Oxycodone HCl [Oxycontin Ir 5 Mg Tablet] 1 tab PO QHS PRN #5 tablet 09/18/16 Ibuprofen/Oxycodone HCl [Oxycodone-Ibuprofen 5-400 Tab] 1 each PO BIDP PRN #20 tablet 11/07/16 Oxycodone HCl 5 mg PO BID PRN #20 tablet 11/08/16 Allergies/Adverse Reactions: acetaminophen [From Tylenol] Allergy (Verified 03/05/20 21:54) Hives morphine [Morphine] Allergy (Verified 03/05/20 21:54) Hives Review of Systems Constitutional: ABSENT: chills, fever(s), headache(s), weight gain, weight loss Eyes: ABSENT: visual disturbances Ears: ABSENT: hearing changes Cardiovascular: ABSENT: chest pain, dyspnea on exertion, edema, orthropnea, palpitations Respiratory: ABSENT: cough, hemoptysis Gastrointestinal: ABSENT: abdominal pain, constipation, diarrhea, hematemesis, hematochezia, nausea, vomiting Genitourinary: ABSENT: dysuria, hematuria Musculoskeletal: ABSENT: joint swelling Integumentary: ABSENT: rash, wounds Neurological: ABSENT: abnormal gait, abnormal speech, confusion, dizziness, focal weakness, syncope Psychiatric: ABSENT: anxiety, depression, homidical ideation, suicidal ideation Endocrine: ABSENT: cold intolerance, heat intolerance, polydipsia, polyuria Hematologic/Lymphatic: ABSENT: easy bleeding, easy bruising Physical Exam Vital Signs: Temp Pulse Resp BP Pulse Ox 98.2 F 86 18 132/94 H 98 03/06/20 03:15 03/06/20 03:15 03/06/20 03:15 03/06/20 03:15 03/06/20 03:15 Intake & Output 03/04/20 03/05/20 03/06/20 11:59 11:59 11:59 Weight 125 kg General appearance: PRESENT: cooperative, morbidly obese - BMI 50, well- developed. ABSENT: well-nourished Head exam: PRESENT: atraumatic, normocephalic Eye exam: PRESENT: conjunctiva pink, EOMI, PERRLA. ABSENT: scleral icterus Ear exam: PRESENT: normal external ear exam Mouth exam: PRESENT: moist, tongue midline Neck exam: ABSENT: carotid bruit, JVD, lymphadenopathy, thyromegaly Respiratory exam: PRESENT: clear to auscultation gilmer. ABSENT: rales, rhonchi, wheezes Cardiovascular exam: PRESENT: RRR. ABSENT: diastolic murmur, rubs, systolic murmur Pulses: PRESENT: normal dorsalis pedis pul Vascular exam: PRESENT: normal capillary refill GI/Abdominal exam: PRESENT: normal bowel sounds, soft. ABSENT: distended, guarding, mass, organolmegaly, rebound, tenderness Rectal exam: PRESENT: deferred Extremities exam: PRESENT: full ROM. ABSENT: calf tenderness, clubbing, pedal edema Neurological exam: PRESENT: alert, awake, oriented to person, oriented to place, oriented to time, oriented to situation, CN II-XII grossly intact. ABSENT: motor sensory deficit Psychiatric exam: PRESENT: appropriate affect, normal mood. ABSENT: homicidal ideation, suicidal ideation Skin exam: PRESENT: dry, intact, warm. ABSENT: cyanosis, rash Results Laboratory Results: 03/05/20 22:24 03/05/20 22:24 03/05/20 03/05/20 22:24 22:24 WBC 9.1 RBC 5.20 Hgb 16.5 H Hct 47.6 H MCV 92 MCH 31.7 MCHC 34.6 RDW 13.7 Plt Count 311 Seg Neutrophils % 57.4 Sodium 141.3 Potassium 4.0 Chloride 109 H Carbon Dioxide 24 Anion Gap 8 BUN 5 L Creatinine 0.54 Est GFR ( Amer) > 60 Glucose 116 H Calcium 9.3 Total Bilirubin 0.3 AST 154 H Alkaline Phosphatase 79 Total Protein 7.9 Albumin 4.2 03/05/20 03/05/20 03/06/20 22:24 22:24 01:23 Creatine Kinase 67 CK-MB (CK-2) 0.48 Troponin I < 0.012 < 0.012 Impressions: Chest X-Ray 03/05/20 00:00 IMPRESSION: No acute cardiopulmonary process copyright 2011 [employer]- All Rights Reserved Assessment and Plan - Diagnosis (1) Chest pain Is this a current diagnosis for this admission?: Yes Plan: Follow-up serial cardiac enzymes, lipid profile, TSH and Cardiolite stress test (2) Morbid obesity Is this a current diagnosis for this admission?: Yes Plan: Morbid obesity will evaluate for metabolic cause with evaluation of thyroid function and dietitian consultation (3) Hepatitis C Is this a current diagnosis for this admission?: Yes Plan: Follow-up outpatient gastroenterology - Time Time Spent with patient: 25-34 minutes
[2020-03-06 08:33] LABS: TRIGLYCERIDES 63 mg/dL (<150)
[2020-03-06 08:44] LABS: DIRECT LDL 92 mg/dL (<100)
--- NOTE | 2020-03-06 09:32 | EKG REPORT ---
SEVERITY:- ABNORMAL ECG - SINUS TACHYCARDIA PROBABLE LEFT ATRIAL ABNORMALITY LEFT ANTERIOR FASCICULAR BLOCK CONSIDER ANTERIOR INFARCT : Confirmed by: Samira Tolentino MD 06-Mar-2020 09:31:59
[2020-03-06] MEDS: ASPIRIN 81 MG TABLET, ENT COATED PO SCH (10:21)
[2020-03-06] MEDS: ENOXAPARIN SODIUM INJ 60 MG/0.6 ML DISP.SYRIN SUBCUT SCH ×2 (10:21→21:13)
--- NOTE | 2020-03-06 14:27 | RADIOLOGY REPORT (SQ) ---
EXAM DESCRIPTION: U/S ABDOMEN LTD W/DOPPLER IMAGES COMPLETED DATE/TIME: 03/06/2020 1:11 pm REASON FOR STUDY: Elevated LFTs COMPARISON: None. TECHNIQUE: Dynamic and static grayscale images acquired of the abdomen and recorded on PACS. Additio nal selected color Doppler and spectral images recorded. LIMITATIONS: None. FINDINGS: PANCREAS: No masses. Limited evaluation of the tail of the pancreas. LIVER: No masses. Echotexture normal. LIVER VASCULATURE: Normal directional flow of the main portal vein and hepatic veins. GALLBLADDER: No stones. No wall thickening. ULTRASOUND-DETECTED LIRIANO'S SIGN: Negative. INTRAHEPATIC DUCTS AND COMMON DUCT: CBD and intrahepatic ducts normal caliber. No filling defects. INFERIOR VENA CAVA: Not imaged. AORTA: No aneurysm. The distal aorta was not seen. RIGHT KIDNEY: Normal size, 12.3 cm. Normal echogenicity. No solid or suspicious masses. No hydroneph rosis. No calcifications. PERITONEAL AND RIGHT PLEURAL SPACE: No ascites or effusions. OTHER: No other significant findings. IMPRESSION: Normal gallbladder. Findings as described. TECHNICAL DOCUMENTATION: JOB ID: [id number] 2010 [employer]- All Rights Reserved Reading location - IP/workstation name: [email or web address]
[2020-03-06] MEDS ORDERED: REGADENOSON INJ 0.4 MG/5 ML DISP.SYRIN IV ONE (15:00)
[2020-03-06] MEDS ORDERED: (PENDING PHARMACY ID) (Albuterol Sulfate 1 PUFF) IH PRN (15:35)
[2020-03-06] MEDS ORDERED: ALBUTEROL SULFATE HFA (90 MCG/PUFF) 200 PUFF/8.5 GM MDI IH PRN (15:36)
[2020-03-06] MEDS ORDERED: (PENDING PHARMACY ID) (Budesonide/Formoterol Fumarate 1 PUFF) IH SCH (18:00)
[2020-03-06] MEDS ORDERED: ATORVASTATIN CALCIUM 80 MG TABLET PO SCH (22:00)
[2020-03-07] MEDS ORDERED: FLUTICASONE/VILANTEROL 100-25 MCG/DOSE IH SCH (10:00)
[2020-03-07] MEDS: ENOXAPARIN SODIUM INJ 60 MG/0.6 ML DISP.SYRIN SUBCUT SCH (10:08)
[2020-03-07] MEDS: ASPIRIN 81 MG TABLET, ENT COATED PO SCH (10:08)
--- NOTE | 2020-03-07 11:59 | DRAGON STRESS TEST REPORT ---
Pharmacological nuclear stress test Date: March 07, 2020 Referring physician: Dr. Escalera Performing physician: Jorgito Beard MD Indication: Chest pain Clinical history 45 year-old with medical history significant for presenting with chest pain. Risk factors for coronary artery disease include continued nicotine dependence, hypertension and dyslipidemia. We decided to proceed with pharmacological nuclear stress test Procedure The patient presented to the stress lab. Initially rest images were obtained according to standard protocol after the injection of 15.9 millicurie technetium 99m sestamibi. Subsequently the patient underwent pharmacological stress utilizing 0.4 mg of regadenoson intravenously. The patient's EKG and vital signs were monitored throughout the procedure. Subsequently patient was injected with 45.5 millicuries of technetium 99m sestamibi. After a period of rest, stress images were obtained according to standard protocol. The patient's resting EKG showed sinus rhythm at 63 beats per minute. The patient's stress EKG did not show any evidence for myocardial ischemia. There were no arrhythmias observed. The initial blood pressure was 107/63 mmHg. Raw as well as processed rest and stress images were reviewed. There was mild to moderate gut uptake which did not interfere with the study. The rest and stress images show uniform uptake of radioactive isotope without any fixed or reversible defects to suggest myocardial ischemia or myocardial infarction. There was evidence of mild breast attenuation on the rest as well as stress images. There is normal contractility post-rest. The calculated ejection fraction is 51 %. The TID ratio is 1.04. Conclusion The stress EKG is negative for myocardial ischemia There is no scintigraphic evidence of myocardial infarction or ischemia provoked by pharmacological stress. There is normal contractility post-stress. The gated left ventricular ejection fraction is 51 %. MTDD
[2020-03-07 15:55] VITALS: BP 132/94
--- NOTE | 2020-03-07 18:11 | PDOC DISCHARGE SUMMARY ---
Impression - Admit/DC Date/PCP Admission Date/Primary Care Provider: 03/06/20 00:18 KALIA REYNOLDS Discharge Date: 03/07/20 - Discharge Diagnosis (1) Chest pain Is this a current diagnosis for this admission?: Yes (2) Current every day smoker Is this a current diagnosis for this admission?: Yes (3) Hepatitis C Is this a current diagnosis for this admission?: Yes (4) Morbid obesity Is this a current diagnosis for this admission?: Yes - Additional Information Resuscitation Status: Full Code Discharge Diet: Cardiac Discharge Activity: Activity As Tolerated Referrals: [facility]PT [Outside] ([facility] UPON D/C PATIENT SHOULD SELF QUARANTINE UNTIL CLEARED BY HEALTH DEPT. ONCE CLEARED PATIENT MAY THEN SCHEDULE AN APPT. WITH PRIMARY CARE PROVIDER.) KALIA REYNOLDS MD [Primary Care Provider] - Home Medications: Albuterol Sulfate [Proair HFA Inhalation Aerosol 8.5 gm MDI] 1 puff IH Q4HP PRN 03/06/20 Budesonide/Formoterol Fumarate [Symbicort HFA 80-4.5 mcg Inhaler 6.9 gm] 1 puff IH BID 03/06/20 Ergocalciferol (Vitamin D2) [Vitamin D2] 50,000 unit PO WE@1000 03/06/20 Ibuprofen 200 mg PO DAILYP PRN 03/06/20 Aspirin [Ecotrin 81 mg EC Tablet] 81 mg PO DAILY tabec 03/07/20 History of Present Illiness History of Present Illness: CHINMAY MIRANDA is a 45 year old female with a past medical history of morbid obesity, endometriosis, hepatitis C and tobacco abuse. She presents 5 hours after the onset of severe left-sided chest pain without radiation occurring at rest while watching television. It was aggravated by activity but relieved by nitroglycerin, aspirin and Ativan received via EMS. She denies shortness of breath nausea vomiting diaphoresis or palpitations. She denies previous episode, change in recent medication regiment and is otherwise felt well. She denies recent cardiac stress test. Hospital Course Hospital Course: She did not have any more chest pain here. She had no events on telemetry. No signs of ischemia on EKG. Troponins were all negative. She had a normal stress test. She had some elevated transaminases on admission and got an abdominal ultrasound that was unremarkable. She was strongly urged to quit smoking and to take a baby aspirin every day. For some reason she was tested for coronavirus but she does not present with any symptoms of concern so we will let her go home and follow-up up with her on the results. Her labs and examination were reassuring and she was discharged in stable condition. Physical Exam Vital Signs: Temp Pulse Resp BP Pulse Ox 98.3 F 58 L 20 132/94 H 98 03/07/20 15:54 03/07/20 15:54 03/07/20 15:54 03/07/20 15:54 03/07/20 15:54 Intake & Output 03/06/20 03/07/20 03/08/20 06:59 06:59 06:59 Intake Total 520 520 Output Total 100 Balance 420 520 Weight 125 kg 125 kg General appearance: PRESENT: no acute distress, cooperative, disheveled, morbidly obese Respiratory exam: PRESENT: clear to auscultation gilmer, symmetrical, unlabored. ABSENT: accessory muscle use, chest wall tenderness, crackles, prolonged expiratory phas, rhonchi, tachypnea, wheezes Cardiovascular exam: PRESENT: RRR, +S1, +S2 Pulses: PRESENT: normal carotid pulses Vascular exam: PRESENT: normal capillary refill GI/Abdominal exam: PRESENT: normal bowel sounds, soft. ABSENT: distended, guarding, rebound, tenderness Extremities exam: ABSENT: clubbing, pedal edema Musculoskeletal exam: PRESENT: normal inspection. ABSENT: deformity Neurological exam: PRESENT: alert, awake, oriented to person, oriented to place, oriented to situation Psychiatric exam: PRESENT: appropriate affect, normal mood Skin exam: PRESENT: dry, warm Results Laboratory Results: WBC 9.1 10^3/uL (4.0-10.5) 03/05/20 22:24 RBC 5.20 10^6/uL (3.72-5.28) 03/05/20 22:24 Hgb 16.5 g/dL (12.0-15.5) H 03/05/20 22:24 Hct 47.6 % (36.0-47.0) H 03/05/20 22:24 MCV 92 fl (80-97) 03/05/20 22:24 MCH 31.7 pg (27.0-33.4) 03/05/20 22:24 MCHC 34.6 g/dL (32.0-36.0) 03/05/20 22:24 RDW 13.7 % (11.5-14.0) 03/05/20 22:24 Plt Count 311 10^3/uL (150-450) 03/05/20 22:24 Lymph % (Auto) 30.3 % (13-45) 03/05/20 22:24 Mccurtain % (Auto) 5.7 % (3-13) 03/05/20 22:24 Eos % (Auto) 5.2 % (0-6) 03/05/20 22:24 Baso % (Auto) 1.4 % (0-2) 03/05/20 22:24 Absolute Neuts (auto) 5.2 10^3/uL (1.7-8.2) 03/05/20 22: Absolute Lymphs (auto) 2.8 10^3/uL (0.5-4.7) 03/05/20 22:24 Absolute Monos (auto) 0.5 10^3/uL (0.1-1.4) 03/05/20 22:24 Absolute Eos (auto) 0.5 10^3/uL (0.0-0.6) 03/05/20 22:24 Absolute Basos (auto) 0.1 10^3/uL (0.0-0.2) 03/05/20 22:24 Seg Neutrophils % 57.4 % (42-78) 03/05/20 22:24 PT 12.9 SEC (11.4-15.4) 03/05/20 22:24 INR 0.97 03/05/20 22:24 D-Dimer 0.40 ug/mL (0.00-0.50) 03/05/20 22:24 Sodium 141.3 mmol/L (137-145) 03/05/20 22:24 Potassium 4.0 mmol/L (3.6-5.0) 03/05/20 22:24 Chloride 109 mmol/L (98-107) H 03/05/20 22:24 Carbon Dioxide 24 mmol/L (22-30) 03/05/20 22:24 Anion Gap 8 (5-19) 03/05/20 22:24 BUN 5 mg/dL (7-20) L 03/05/20 22:24 Creatinine 0.54 mg/dL (0.52-1.25) 03/05/20 22:24 Est GFR ( Amer) > 60 (>60) 03/05/20 22:24 Est GFR (MDRD) Non-Af > 60 (>60) 03/05/20 22:24 Glucose 116 mg/dL (75-110) H 03/05/20 22:24 Calcium 9.3 mg/dL (8.4-10.2) 03/05/20 22:24 Total Bilirubin 0.3 mg/dL (0.2-1.3) 03/05/20 22:24 Direct Bilirubin 0.0 mg/dL (0.0-0.4) 03/05/20 22:24 Neonat Total Bilirubin Not Reportable 03/05/20 22:24 Neonat Direct Bilirubin Not Reportable 03/05/20 22:24 Neonat Indirect Bili Not Reportable 03/05/20 22:24 AST 154 U/L (14-36) H 03/05/20 22:24 ALT 225 U/L (<35) H 03/05/20 22:24 Alkaline Phosphatase 79 U/L (38-126) 03/05/20 22:24 Creatine Kinase 67 U/L (30-135) 03/05/20 22:24 CK-MB (CK-2) 0.48 ng/mL (<4.55) 03/05/20 22:24 Troponin I < 0.012 ng/mL 03/06/20 13:35 Total Protein 7.9 g/dL (6.3-8.2) 03/05/20 22:24 Albumin 4.2 g/dL (3.5-5.0) 03/05/20 22:24 Triglycerides 63 mg/dL (<150) 03/06/20 07:35 Cholesterol 161.70 mg/dL (0-200) 03/06/20 07:35 LDL Cholesterol Direct 92 mg/dL (<100) 03/06/20 07:35 VLDL Cholesterol 13.0 mg/dL (10-31) 03/06/20 07:35 HDL Cholesterol 55 mg/dL (>40) 03/06/20 07:35 TSH 0.33 uIU/mL (0.47-4.68) L 03/06/20 07:35 03/05/20 03/06/20 03/06/20 22:24 01:23 07:35 CK-MB (CK-2) 0.48 Troponin I < 0.012 < 0.012 < 0.012 03/06/20 13:35 CK-MB (CK-2) Troponin I < 0.012 Impressions: Chest X-Ray 03/05/20 00:00 IMPRESSION: No acute cardiopulmonary process copyright 2011 [employer]- All Rights Reserved Abdomen Ultrasound 03/06/20 00:00 IMPRESSION: Normal gallbladder. Findings as described. Plan Time Spent: Greater than 30 Minutes Stroke Is this a Stroke Patient?: No Acute Heart Failure - Is this a Heart Failure Patient?: No
== END 2020-03-07 17:03 | disposition home or self-care (01) ==
LOC: ER 21:42 → EH 03-06 00:18 → 5 03-06 03:36
PROVIDERS: ADMIT Internal Medicine; ATTEND Family Medicine
DX: R07.9 Chest pain, unspecified (principal); F17.200 Nicotine dependence, unspecified, uncomplicated; B19.20 Unspecified viral hepatitis C without hepatic coma; E66.01 Morbid (severe) obesity due to excess calories; R74.0 Nonspecific elevation of levels of transaminase and lactic acid dehydrogenase [LDH]; J45.998 Other asthma; R05 Cough; R06.02 Shortness of breath; R00.0 Tachycardia, unspecified; I10 Essential (primary) hypertension; Z03.818 Encounter for observation for suspected exposure to other biological agents ruled out; Z68.43 Body mass index [BMI] 50.0-59.9, adult; Z83.2 Family history of diseases of the blood and blood-forming organs and certain disorders involving the immune mechanism
CPT/HCPCS: 93005; 94640; 99285; 36415 ×2; 82553; 82550; 84443; 85025; 85610; 87635; 80053; 84484 ×2; 85379; 80061; 93017; 71045; 76705; 93976; 78452; 93010; A9500; J2785; J7512; J3490 ×5; J1650; J7620; Q9969; C9803

== ENCOUNTER 2020-08-06 21:32 | Emergency (ER) | payer MEDICAID ==
--- NOTE | 2020-08-06 21:45 | ER Document Report ---
ED General - General Chief Complaint: Fall Stated Complaint: RIGHT ANKLE/RIGHT KNEE PAIN Time Seen by Provider: 08/06/20 21:45 Primary Care Provider: KALIA REYNOLDS MD [Primary Care Provider] - Follow up in 3-5 days TRAVEL OUTSIDE OF THE [place] IN LAST 30 DAYS: No - HPI Notes: 45-year-old female to the emergency department with complaints of right ankle swelling and pain with small abrasion and right knee pain. This started after she fell through the floor in her trailer. She states that she had told her landlord that the floor was soft. She and her significant other had been putting a chair over the area so that they would not walk over it. However, tonight while she was cooking dinner she pushed the chair side. When she walked over the area she went right on through the floor. She states that she struck her knee as she came down. She denies hitting her head or having any loss of consciousness. She states her knee and her ankle hurt; she does admit to some mild anterior thigh pain as well. She states that she has an abrasion to the lateral side of the right ankle she is not up-to-date on her tetanus. She has a history of asthma and feels like she is a little bit wheezy. She would like a breathing treatment. - Related Data Allergies/Adverse Reactions: acetaminophen [From Tylenol] Allergy (Verified 03/05/20 21:54) Hives morphine [Morphine] Allergy (Verified 03/05/20 21:54) Hives Past Medical History - General Information source: Patient - Social History Smoking Status: Current Some Day Smoker Frequency of alcohol use: None Drug Abuse: None Family History: Reviewed & Not Pertinent, Other - Hypercoagulability Pulmonary Medical History: Reports: Hx Asthma - smokers asthma Denies: Hx Tuberculosis Renal/ Medical History: Denies: Hx Peritoneal Dialysis GI Medical History: Reports: Hx Hepatitis Psychiatric Medical History: Reports: Hx Anxiety Denies: Hx Depression Infectious Medical History: Reports: Hx Hepatitis Past Surgical History: Reports: Hx Section - x2, Hx Gynecologic Surgery - Laparoscopic surgery for endometriosis adhesions; uterine ablation, Hx Hysterectomy, Hx Oral Surgery, Hx Tubal Ligation - Immunizations Immunizations up to date: Yes Hx Diphtheria, Pertussis, Tetanus Vaccination: Yes Review of Systems - Review of Systems Constitutional: denies: Chills, Fever EENT: No symptoms reported Cardiovascular: denies: Chest pain, Palpitations, Syncope, Dizziness, Lightheaded, Edema Respiratory: Wheezing. denies: Cough, Short of breath Gastrointestinal: denies: Abdominal pain, Diarrhea, Nausea, Vomiting Musculoskeletal: See HPI, Joint pain, Joint swelling Skin: Other - abrasion to the right ankle Neurological/Psychological: No symptoms reported. denies: Lost consciousness, Headaches -: Yes All other systems reviewed and negative Physical Exam - Vital signs Vitals: Temp Pulse Resp BP Pulse Ox 98.7 F 85 20 145/90 H 98 08/06/20 21:45 08/06/20 21:45 08/06/20 21:45 08/06/20 21:45 08/06/20 21:45 Interpretation: Normal - General General appearance: Appears well, Alert In distress: None - HEENT Head: Normocephalic, Atraumatic Eyes: Normal Pupils: PERRL Neck: Normal, Supple - Respiratory Respiratory status: No respiratory distress Chest status: Nontender Breath sounds: Decreased air movement, Other - With breath sounds patient sounds slightly wheezy as she is breathing and I am not auscultating her. However on auscultation she does not sound grossly or diffusely wheezy. She has some mild decreased breath sounds throughout.. No: Rales, Rhonchi Chest palpation: Normal - Cardiovascular Rhythm: Regular Heart sounds: Normal auscultation Murmur: No - Abdominal Inspection: Morbidly Obese Distension: No distension Bowel sounds: Normal Tenderness: Nontender. No: Tender, McBurney's point, Coats's sign, Guarding, Rebound Organomegaly: No organomegaly - Extremities Notes: There is swelling to the lateral aspect of the right ankle with tenderness to palpation. There is a small puncture wound. Bleeding is controlled. There is also tenderness to palpation to the right knee with noted anterior joint effusion. There is no ecchymosis to either joint. Patient has increased pain with flexion and extension of the knee as well as dorsi flexion and plantar flexion of the right ankle. Strength is about 4 out of 5 against resistance. DP pulses are intact and equal. She can wiggle all toes. Cap refill is less th an 2 seconds. She has mild tenderness to the musculature of the right anterior thigh. However she is not tender to palpation to the right hip. She has no leg length discrepancy or internal rotation. - Neurological Neuro grossly intact: Yes Cognition: Normal Orientation: AAOx4 Spencer Coma Scale Eye Opening: Spontaneous Lei Coma Scale Verbal: Oriented Lei Coma Scale Motor: Obeys Commands Spencer Coma Scale Total: 15 Speech: Normal Cranial nerves: Normal Cerebellar coordination: Normal Motor strength normal: LUE, RUE, LLE, RLE Additional motor exam normals: Equal director software quality assurance Sensory: Normal - Psychological Associated symptoms: Normal affect, Normal mood - Skin Skin Temperature: Warm Skin Moisture: Dry Skin Color: Normal Skin irregularity: other - abrasion to lateral aspect of the right ankle. Course - Re-evaluation Re-evalutation: 08/06/20 23:24 Impression: Fall, right ankle sprain, right knee sprain with joint effusion will place patient in an ankle stirrup as well as a knee immobilizer and crutches. We will have her elevate and ice the knee. We will have her follow-up with primary care. Return if worsening symptoms. Patient agrees - Vital Signs Vital signs: Temp Pulse Resp BP Pulse Ox 98.7 F 85 20 145/90 H 98 08/06/20 21:45 08/06/20 21:45 08/06/20 21:45 08/06/20 21:45 08/06/20 21:45 - Diagnostic Test Radiology reviewed: Image reviewed, Reports reviewed Discharge - Discharge Clinical Impression: Fall Qualifiers: Encounter type: initial encounter Qualified Code(s): W19.XXXA - Unspecified fall, initial encounter Right knee sprain Qualifiers: Encounter type: initial encounter Involved ligament of knee: unspecified ligament Qualified Code(s): S83.91XA - Sprain of unspecified site of right knee, initial encounter Joint effusion of knee Qualifiers: Laterality: right Qualified Code(s): M25.461 - Effusion, right knee Right ankle sprain Qualifiers: Encounter type: initial encounter Involved ligament of ankle: unspecified ligament Qualified Code(s): S93.401A - Sprain of unspecified ligament of right ankle, initial encounter Ankle abrasion Qualifiers: Encounter type: initial encounter Laterality: right Qualified Code(s): S90.511A - Abrasion, right ankle, initial encounter Asthma Qualifiers: Asthma severity: mild Asthma persistence: intermittent Asthma complication type: uncomplicated Qualified Code(s): J45.20 - Mild intermittent asthma, uncomplicated Condition: Stable Disposition: HOME, SELF-CARE Instructions: Ice Packs ([facility]), Sprained Ankle ([facility]) Additional Instructions: Use splint as prescribed. Use crutches. Elevate and ice the knee and ankle. You did not have a fracture on your x-ray today. Please follow-up with the orthopedist without fail. Take medicines as prescribed. Prescriptions: Cyclobenzaprine HCl [Flexeril 10 mg Tablet] 10 mg PO TID #21 tablet Diclofenac Sodium [Voltaren 25 Mg Tablet] 25 mg PO BID #12 tablet.dr Referrals: KALIA REYNOLDS MD [Primary Care Provider] - Follow up in 3-5 days JOSTIN ORTIZ MD [ACTIVE STAFF] - Follow up in 1 week (for orthopedic follow up)
[2020-08-06] MEDS ORDERED: DIPH/PERTUSS(ACELL)/TETANUS VAC/PF 0.5 ML SYR (>=10YO) IM ONE (21:53)
[2020-08-06] MEDS ORDERED: ALBUTEROL SULFATE 0.083% NEB 2.5 MG/3 ML AMPUL NEB ONE (21:53)
[2020-08-06] MEDS ORDERED: HYDROCODONE/ACETAMINOPHEN 5-325 MG TABLET PO ONE (21:53)
--- NOTE | 2020-08-06 22:47 | RADIOLOGY REPORT (SQ) ---
EXAM DESCRIPTION: [facility]: XR ANKLE 3 OR MORE VIEWS Views: 3 CLINICAL HISTORY: 45 years Female; right ankle injury; COMPARISON: None. FINDINGS: Negative for acute fracture, dislocation, or radiopaque foreign body. IMPRESSION: 1. No acute findings.
--- NOTE | 2020-08-06 22:48 | RADIOLOGY REPORT (SQ) ---
Right knee x-ray four views on 08/06/2020 at 10:05 PM CLINICAL INDICATION: Right knee injury, pain COMPARISON: 11/07/2016 FINDINGS: There is a trace suprapatellar joint effusion. There are no fractures. There is mild joint space narrowing in the medial compartment. Visualized joints are well aligned. No other bony abnormality is noted. IMPRESSION: 1. No acute bony abnormality. 2. Joint effusion, if clinically indicated follow up MRI could better evaluate for internal derangement of the joint.
[2020-08-06] MEDS ORDERED: CYCLOBENZAPRINE HCL 10 MG TABLET PO ONE (23:33)
[2020-08-07 00:48] VITALS: BP 125/68
== END 2020-08-07 00:48 | disposition home or self-care (01) ==
LOC: ER 21:32
DX: S83.91XA Sprain of unspecified site of right knee, initial encounter (principal); S91.031A Puncture wound without foreign body, right ankle, initial encounter; S93.401A Sprain of unspecified ligament of right ankle, initial encounter; M25.461 Effusion, right knee; M25.561 Pain in right knee; M25.571 Pain in right ankle and joints of right foot; M79.659 Pain in unspecified thigh; W13.3XXA Fall through floor, initial encounter; Y93.G3 Activity, cooking and baking; Y92.029 Unspecified place in mobile home as the place of occurrence of the external cause; J45.20 Mild intermittent asthma, uncomplicated; F17.208 Nicotine dependence, unspecified, with other nicotine-induced disorders; Z23 Encounter for immunization; Z88.8 Allergy status to other drugs, medicaments and biological substances; Z88.6 Allergy status to analgesic agent; Z88.5 Allergy status to narcotic agent
CPT/HCPCS: 94640; 99284; 73610; 73564; 90715; G0008; J3490; J7613; 90471